=== PATIENT | female | born 2000 | race Caucasian/White ===

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

== ENCOUNTER → 2021-01-03 | Outpatient (CLI) | payer OTHER ==
[~2021-01-03] MED LIST changes: +CLAR10CA3 PO; +DEPA1TAB3; +HYDR-3363; +LAMI1TAB9; +LITH150C PO
== END ==
LOC: M WUC 12:05
PROVIDERS: ATTEND Nurse Practitioner Psychiatric/Mental Health
DX: F25.0 Schizoaffective disorder, bipolar type (principal)

== ENCOUNTER → 2021-02-12 | Outpatient (REF) | payer OTHER ==
[2021-02-12 20:35] LABS: GC DNA AMPLIFICATION NEGATIVE (NEGATIVE)
== END ==
LOC: M SFHCWAGY 17:30
PROVIDERS: ATTEND Nurse Practitioner Women's Health
DX: Z11.3 Encounter for screening for infections with a predominantly sexual mode of transmission (principal)

== ENCOUNTER → 2021-09-22 | Outpatient (REF) | payer OTHER, MEDICAID ==
[2021-09-22 13:25] LABS: APPEARANCE, URINE CLEAR (CLEAR); BACTERIA, URINE AUTO 1+ (NEGATIVE); BILIRUBIN, URINE AUTO NEGATIVE (NEGATIVE); BLOOD, URINE BLOOD 1+ (NEGATIVE); COLOR, URINE YELLOW (YELLOW); GLUCOSE, URINE (UA) AUTO NEGATIVE (NEGATIVE); KETONE, URINE AUTO NEGATIVE (NEGATIVE); LEUKOCYTE ESTERASE, URINE AUTO NEGATIVE (NEGATIVE); NITRITE, URINE AUTO NEGATIVE (NEGATIVE); PROTEIN, URINE AUTO NEGATIVE (NEGATIVE); RBC, URINE AUTO 0 /HPF (0-3); SPECIFIC GRAVITY URINE AUTO 1.008 (1.002-1.035); SQUAMOUS EPITHELIAL CELL UR AU 2 /HPF (0-6); UROBILINOGEN, URINE AUTO 0.2 mg/dL (0.0-2.0); WBC, URINE AUTO 1 /HPF (0-3)
== END ==
LOC: M LAB REF 12:47
PROVIDERS: ATTEND Physician Assistant Medical
DX: N39.0 Urinary tract infection, site not specified (principal)

== ENCOUNTER 2021-11-05 18:19 | Emergency (ER) | payer OTHER, MEDICAID ==
[~2021-11-05] VITALS: Ht 170.2 cm; Wt 56.2 kg
[2021-11-05] MEDS ORDERED: NEXP1IMP SC (18:29)
[2021-11-05] MEDS ORDERED: ABIL1INJ2 (18:54)
[2021-11-05 20:21] LABS: HEMATOCRIT 38.5 % (36.0-47.0); HEMOGLOBIN 13.3 g/dl (12.0-15.5); MEAN CORPUSCULAR HEMOGLOBIN 29.4 pg (27.0-33.0); MEAN CORPUSCULAR HGB CONC 34.5 g/dl (32.0-36.5); PLATELET COUNT, AUTOMATED 212 10^3/uL (150-450); RED BLOOD COUNT 4.53 10^6/uL (4.00-5.40)
[2021-11-05 20:49] LABS: AMPHETAMINES LEVEL URINE NEGATIVE (NEGATIVE); BARBITURATES URINE NEGATIVE (NEGATIVE); BENZODIAZEPINES URINE NEGATIVE (NEGATIVE); CANNABINOIDS URINE NEGATIVE (NEGATIVE); COCAINE METABOLITE URINE NEGATIVE (NEGATIVE); METHADONE URINE NEGATIVE (NEGATIVE); OPIATES URINE NEGATIVE (NEGATIVE); PHENCYCLIDINE URINE NEGATIVE (NEGATIVE)
[2021-11-05 20:55] LABS: HCG, SERUM QUALITATIVE NEGATIVE (NEGATIVE)
[2021-11-05 20:56] LABS: RSV AMPLIFICATION NEGATIVE (NEGATIVE)
[2021-11-05 20:58] LABS: ACETAMINOPHEN LEVEL < 2.0 UG/ML (10.0-30.0); ALBUMIN 3.9 GM/DL (3.2-5.2); ALT/SGPT 39 U/L (12-78); BILIRUBIN,DIRECT 0.2 MG/DL (0.0-0.2); BILIRUBIN,TOTAL 0.6 MG/DL (0.2-1.0); BLOOD UREA NITROGEN 9 MG/DL (7-18); CALCIUM LEVEL 9.1 MG/DL (8.5-10.1); CARBON DIOXIDE LEVEL 22 MEQ/L (21-32); CHLORIDE LEVEL 113 MEQ/L (98-107); CREATININE FOR GFR 0.68 MG/DL (0.55-1.30); ETHYL ALCOHOL (ETHANOL) < 0.003 % (0.000-0.010); GLUCOSE, FASTING 90 MG/DL (70-100); POTASSIUM SERUM 3.7 MEQ/L (3.5-5.1); SALICYLATE LEVEL < 1.7 MG/DL (5.0-30.0); SODIUM LEVEL 143 MEQ/L (136-145); TOTAL PROTEIN 6.7 GM/DL (6.4-8.2)
[2021-11-06] MEDS ORDERED: ABIL1INJ2 IM (01:38)
[2021-11-06] MEDS ORDERED: NEXP1IMP SC (01:38)
[2021-11-06] MEDS ORDERED: HOME MED LIST COMPLETE! XX SCH (01:40)
[2021-11-06 08:50] VITALS: BP 109/55
== END 2021-11-06 09:45 | disposition home or self-care (01) ==
LOC: M ED 18:19
DX: F43.0 Acute stress reaction (principal); F31.9 Bipolar disorder, unspecified; Z79.899 Other long term (current) drug therapy

== ENCOUNTER 2021-12-27 22:45 | Emergency (ER) | payer MEDICAID, OTHER ==
[~2021-12-27 22:45] MED LIST changes: +ABIL1INJ2; +ABIL1INJ2 IM; +NEXP1IMP SC
[2021-12-28] MEDS ORDERED: OMEPRAZOLE 20MG CAP PO ONE (06:25)
[2021-12-28 06:32] VITALS: BP 106/59
[2021-12-28] MEDS ORDERED: OMEP-173 PO (06:39)
== END 2021-12-28 07:01 | disposition home or self-care (01) ==
LOC: M ED 22:45
DX: R07.89 Other chest pain (principal); K21.9 Gastro-esophageal reflux disease without esophagitis; R00.1 Bradycardia, unspecified; F32.A Depression, unspecified; F20.9 Schizophrenia, unspecified; F94.1 Reactive attachment disorder of childhood; Z79.899 Other long term (current) drug therapy

== ENCOUNTER 2022-02-06 17:15 | Emergency (ER) | payer OTHER ==
[~2022-02-06] VITALS: Ht 167.6 cm; Wt 51.3 kg
[~2022-02-06 17:15] MED LIST changes: +ETON68IM SC; -NEXP1IMP SC; +OMEP-173 PO
[2022-02-06 22:31] LABS: HEMOGLOBIN 13.5 g/dl (12.0-15.5); MEAN CORPUSCULAR HEMOGLOBIN 29.2 pg (27.0-33.0); MEAN CORPUSCULAR HGB CONC 33.8 g/dl (32.0-36.5); MEAN CORPUSCULAR VOLUME 86.4 fl (80.0-96.0); PLATELET COUNT, AUTOMATED 106 10^3/uL (150-450); RED BLOOD COUNT 4.63 10^6/uL (4.00-5.40); WHITE BLOOD COUNT 11.3 10^3/uL (4.0-10.0)
[2022-02-06 22:47] LABS: HCG, SERUM QUALITATIVE NEGATIVE (NEGATIVE)
[2022-02-06 22:52] LABS: AMPHETAMINES LEVEL URINE NEGATIVE (NEGATIVE); BARBITURATES URINE NEGATIVE (NEGATIVE); BENZODIAZEPINES URINE NEGATIVE (NEGATIVE); CANNABINOIDS URINE NEGATIVE (NEGATIVE); COCAINE METABOLITE URINE NEGATIVE (NEGATIVE); METHADONE URINE NEGATIVE (NEGATIVE); OPIATES URINE NEGATIVE (NEGATIVE); PHENCYCLIDINE URINE NEGATIVE (NEGATIVE)
[2022-02-06 22:59] VITALS: BP 101/56
[2022-02-06 23:02] LABS: ACETAMINOPHEN LEVEL < 2.0 UG/ML (10.0-30.0); ALBUMIN 3.8 GM/DL (3.2-5.2); ALT/SGPT 49 U/L (12-78); BILIRUBIN,DIRECT 0.1 MG/DL (0.0-0.2); BILIRUBIN,TOTAL 0.5 MG/DL (0.2-1.0); BLOOD UREA NITROGEN 6 MG/DL (7-18); CALCIUM LEVEL 8.6 MG/DL (8.5-10.1); CARBON DIOXIDE LEVEL 23 MEQ/L (21-32); CHLORIDE LEVEL 113 MEQ/L (98-107); CREATININE FOR GFR 0.75 MG/DL (0.55-1.30); ETHYL ALCOHOL (ETHANOL) 0.004 % (0.000-0.010); GLUCOSE, FASTING 113 MG/DL (70-100); POTASSIUM SERUM 3.9 MEQ/L (3.5-5.1); SALICYLATE LEVEL < 1.7 MG/DL (5.0-30.0); SODIUM LEVEL 144 MEQ/L (136-145); THYROID STIMULATING HORMONE 0.678 uIU/ML (0.463-3.98); TOTAL PROTEIN 7.1 GM/DL (6.4-8.2)
== END 2022-02-07 01:27 | disposition home or self-care (01) ==
LOC: M ED 17:15
DX: F32.A Depression, unspecified (principal); F20.9 Schizophrenia, unspecified; F17.200 Nicotine dependence, unspecified, uncomplicated; F10.10 Alcohol abuse, uncomplicated

== ENCOUNTER → 2022-08-23 | Outpatient (REF) | payer OTHER | LOC: M LAB REF 16:31 | PROVIDERS: ATTEND Physician Assistant | DX: J02.9 Acute pharyngitis, unspecified (principal) ==

== ENCOUNTER 2022-10-12 11:41 | Emergency (ER) | payer OTHER ==
[~2022-10-12] VITALS: Ht 170.2 cm; Wt 50.8 kg
[2022-10-12 15:03] LABS: BASO # 0.1 10^3/uL (0.0-0.2); BASO % 0.3 % (0.0-1.0); EOS % 0.3 % (0.0-3.0); HEMATOCRIT 43.6 % (36.0-47.0); LYMPH # 1.7 10^3/uL (1.5-5.0); LYMPH % 10.9 % (24.0-44.0); MEAN CORPUSCULAR HEMOGLOBIN 29.2 pg (27.0-33.0); MEAN CORPUSCULAR HGB CONC 34.4 g/dl (32.0-36.5); MEAN CORPUSCULAR VOLUME 84.8 fl (80.0-96.0); MONO # 0.8 10^3/uL (0.0-0.8); MONO % 5.3 % (2.0-8.0); NEUTROPHILS % 82.9 % (36.0-66.0); PLATELET COUNT, AUTOMATED 171 10^3/uL (150-450); RED BLOOD COUNT 5.14 10^6/uL (4.00-5.40); WHITE BLOOD COUNT 15.7 10^3/uL (4.0-10.0)
[2022-10-12 15:10] LABS: APPEARANCE, URINE HAZY (CLEAR); BACTERIA, URINE AUTO NEGATIVE (NEGATIVE); BILIRUBIN, URINE AUTO NEGATIVE (NEGATIVE); BLOOD, URINE BLOOD 3+ (NEGATIVE); COLOR, URINE AMBER (YELLOW); GLUCOSE, URINE (UA) AUTO NEGATIVE (NEGATIVE); KETONE, URINE AUTO 2+ mg/dL (NEGATIVE); LEUKOCYTE ESTERASE, URINE AUTO NEGATIVE (NEGATIVE); MUCUS, URINE MODERATE (NEGATIVE); NITRITE, URINE AUTO NEGATIVE (NEGATIVE); PROTEIN, URINE AUTO 1+ mg/dL (NEGATIVE); RBC, URINE AUTO 1 /HPF (0-3); SPECIFIC GRAVITY URINE AUTO 1.029 (1.002-1.035); SQUAMOUS EPITHELIAL CELL UR AU 4 /HPF (0-6); WBC, URINE AUTO 9 /HPF (0-3)
[2022-10-12 15:24] LABS: BLOOD UREA NITROGEN 8 MG/DL (9-23); CALCIUM LEVEL 9.3 MG/DL (8.5-10.1); CARBON DIOXIDE LEVEL 20 MMOL/L (20-31); CHLORIDE LEVEL 108 MMOL/L (98-107); CREATININE FOR GFR 0.67 MG/DL (0.55-1.30); GLUCOSE, FASTING 77 MG/DL (60-100); HCG, SERUM QUANTITATIVE < 2.6 MIU/ML (<4.2); POTASSIUM SERUM 3.8 MMOL/L (3.5-5.1); SODIUM LEVEL 139 MMOL/L (136-145)
[2022-10-12 16:25] LABS: GC DNA AMPLIFICATION NEGATIVE (NEGATIVE)
[2022-10-12] MEDS ORDERED: METR-265 PO (17:21)
[2022-10-12 17:44] VITALS: BP 132/73
[2022-10-14] MEDS ORDERED: DOXY-443 PO (07:27)
== END 2022-10-12 17:51 | disposition home or self-care (01) ==
LOC: M ED 11:41
DX: A59.01 Trichomonal vulvovaginitis (principal); N93.9 Abnormal uterine and vaginal bleeding, unspecified; N76.0 Acute vaginitis; F17.200 Nicotine dependence, unspecified, uncomplicated; Z79.899 Other long term (current) drug therapy

== ENCOUNTER 2022-12-23 17:52 | Emergency (ER) | payer OTHER ==
[~2022-12-23] VITALS: Ht 162.6 cm; Wt 54.2 kg
[~2022-12-23 17:52] MED LIST changes: +DOXY-443 PO; +METR-265 PO
[2022-12-23 22:09] LABS: GC DNA AMPLIFICATION NEGATIVE (NEGATIVE)
[2022-12-23] MEDS ORDERED: DOXYCYCLINE HYCLATE 100MG TABLET PO ONE (22:25)
[2022-12-23] MEDS ORDERED: DOXY-443 PO (22:41)
[2022-12-23 22:49] VITALS: BP 132/76; TEMP 97.8; O2SAT 99
== END 2022-12-23 22:56 | disposition home or self-care (01) ==
LOC: M ED 17:52
DX: R10.2 Pelvic and perineal pain (principal); A74.9 Chlamydial infection, unspecified; Z79.899 Other long term (current) drug therapy

== ENCOUNTER 2023-01-21 22:58 | Emergency (ER) | payer OTHER ==
[~2023-01-21] VITALS: Ht 170.2 cm; Wt 53.0 kg
[2023-01-21 23:13] VITALS: BP 133/69; TEMP 99.4; O2SAT 100
[2023-01-22 00:50] LABS: BASO # 0.1 10^3/uL (0.0-0.2); BASO % 0.4 % (0.0-1.0); EOS # 0.1 10^3/uL (0.0-0.5); EOS % 0.5 % (0.0-3.0); HEMOGLOBIN 13.6 g/dl (12.0-15.5); LIPASE 23 U/L (12-53); LYMPH # 2.4 10^3/uL (1.5-5.0); LYMPH % 18.9 % (24.0-44.0); MEAN CORPUSCULAR HEMOGLOBIN 29.5 pg (27.0-33.0); MEAN CORPUSCULAR HGB CONC 33.2 g/dl (32.0-36.5); MEAN CORPUSCULAR VOLUME 88.9 fl (80.0-96.0); MONO # 1.4 10^3/uL (0.0-0.8); MONO % 10.8 % (2.0-8.0); NEUTROPHILS # 8.8 10^3/uL (1.5-8.5); NEUTROPHILS % 68.2 % (36.0-66.0); PLATELET COUNT, AUTOMATED 163 10^3/uL (150-450); RED BLOOD COUNT 4.61 10^6/uL (4.00-5.40); WHITE BLOOD COUNT 12.8 10^3/uL (4.0-10.0)
[2023-01-22 00:52] LABS: ALBUMIN 4.1 G/DL (3.2-5.2); ALKALINE PHOSPHATASE 94 U/L (46-116); ALT/SGPT 14 U/L (7.0-40); AST/SGOT 11 U/L (<34); BILIRUBIN,DIRECT 0.5 MG/DL (<0.4); BILIRUBIN,TOTAL 1.4 MG/DL (0.3-1.2); BLOOD UREA NITROGEN 8 MG/DL (9-23); CALCIUM LEVEL 9.2 MG/DL (8.5-10.1); CARBON DIOXIDE LEVEL 24 MMOL/L (20-31); CHLORIDE LEVEL 106 MMOL/L (98-107); CREATININE FOR GFR 0.68 MG/DL (0.55-1.30); GLOMERULAR FILTRATION RATE > 60.0 (>60); GLUCOSE, FASTING 103 MG/DL (60-100); POTASSIUM SERUM 3.7 MMOL/L (3.5-5.1); SODIUM LEVEL 139 MMOL/L (136-145); TOTAL PROTEIN 7.1 G/DL (5.7-8.2)
== END 2023-01-22 01:28 | disposition left against medical advice (07) ==
LOC: M ED 22:58
DX: Z53.21 Procedure and treatment not carried out due to patient leaving prior to being seen by health care provider (principal)

== ENCOUNTER → 2023-04-21 | Outpatient (CLI) | payer OTHER ==
[2023-04-21 16:08] LABS: HEMATOCRIT 38.3 % (36.0-47.0); HEMOGLOBIN 12.8 g/dl (12.0-15.5); MEAN CORPUSCULAR HEMOGLOBIN 29.1 pg (27.0-33.0); MEAN CORPUSCULAR HGB CONC 33.4 g/dl (32.0-36.5); PLATELET COUNT, AUTOMATED 162 10^3/uL (150-450); WHITE BLOOD COUNT 11.8 10^3/uL (4.0-10.0)
[2023-04-21 16:52] LABS: HIV 1&2 SCREEN NEGATIVE (NEGATIVE)
[2023-04-21 16:59] LABS: HEPATITIS C VIRUS ABY INDEX 0.04 INDEX (<0.8)
[2023-04-21 17:48] LABS: GC DNA AMPLIFICATION NEGATIVE (NEGATIVE)
== END ==
LOC: M PLALAB 14:06
PROVIDERS: ATTEND Advanced Practice Midwife
DX: Z34.01 Encounter for supervision of normal first pregnancy, first trimester (principal)

== ENCOUNTER → 2023-06-23 | Outpatient (CLI) | payer OTHER | LOC: M WHC 13:30 | PROVIDERS: ATTEND Specialist | DX: Z34.02 Encounter for supervision of normal first pregnancy, second trimester (principal) ==

== ENCOUNTER → 2023-08-13 | Outpatient (CLI) | payer OTHER ==
[2023-08-13 15:47] LABS: HEMOGLOBIN 12.5 g/dl (12.0-15.5); MEAN CORPUSCULAR HEMOGLOBIN 30.6 pg (27.0-33.0); MEAN CORPUSCULAR HGB CONC 33.8 g/dl (32.0-36.5); MEAN CORPUSCULAR VOLUME 90.7 fl (80.0-96.0); PLATELET COUNT, AUTOMATED 145 10^3/uL (150-450); RED BLOOD COUNT 4.08 10^6/uL (4.00-5.40); WHITE BLOOD COUNT 11.2 10^3/uL (4.0-10.0)
== END ==
LOC: M PLALAB 12:36
PROVIDERS: ATTEND Advanced Practice Midwife
DX: Z34.02 Encounter for supervision of normal first pregnancy, second trimester (principal)

== ENCOUNTER → 2023-08-30 | Outpatient (CLI) | payer OTHER | LOC: M WHC 13:34 | PROVIDERS: ATTEND Advanced Practice Midwife | DX: Z34.03 Encounter for supervision of normal first pregnancy, third trimester (principal); Z3A.29 29 weeks gestation of pregnancy ==

== ENCOUNTER → 2023-10-11 | Outpatient (REF) | payer OTHER | LOC: M SFHCWAGY 10:15 | PROVIDERS: ATTEND Specialist | DX: Z34.03 Encounter for supervision of normal first pregnancy, third trimester (principal); Z36.85 Encounter for antenatal screening for Streptococcus B ==

== ENCOUNTER 2023-10-24 01:02 | Inpatient (IN) | payer OTHER ==
[~2023-10-24] VITALS: Ht 165.1 cm; Wt 65.3 kg
[2023-10-24 01:24] VITALS: BP 131/72
[2023-10-24] MEDS ORDERED: METHYLERGONOVINE MALEATE 0.2MG/ML 1ML VIAL IM PRN (01:25)
[2023-10-24] MEDS ORDERED: OXYTOCIN DRIP 30 UNITS in IV 1 EA IV PRN (01:25)
[2023-10-24] MEDS ORDERED: OXYTOCIN INJ 10UNITS/ML 1ML VIAL IM PRN (01:25)
[2023-10-24] MEDS ORDERED: TRANEXAMIC ACID INJection 1,000 MG in NS 100 ML IV PRN (01:25)
[2023-10-24] MEDS ORDERED: CARBOPROST TROMETHAMINE 250 MCG/ML AMP IM PRN (01:25)
[2023-10-24 01:34] LABS: BASO # 0.1 10^3/uL (0.0-0.2); BASO % 0.4 % (0.0-1.0); EOS # 0.1 10^3/uL (0.0-0.5); EOS % 0.7 % (0.0-3.0); HEMOGLOBIN 13.4 g/dl (12.0-15.5); LYMPH # 3.3 10^3/uL (1.5-5.0); LYMPH % 20.7 % (24.0-44.0); MEAN CORPUSCULAR HEMOGLOBIN 30.3 pg (27.0-33.0); MEAN CORPUSCULAR HGB CONC 34.4 g/dl (32.0-36.5); MEAN CORPUSCULAR VOLUME 88.2 fl (80.0-96.0); MONO # 1.3 10^3/uL (0.0-0.8); MONO % 8.2 % (2.0-8.0); NEUTROPHILS # 10.9 10^3/uL (1.5-8.5); NEUTROPHILS % 69.2 % (36.0-66.0); PLATELET COUNT, AUTOMATED 132 10^3/uL (150-450); RED BLOOD COUNT 4.42 10^6/uL (4.00-5.40); WHITE BLOOD COUNT 15.7 10^3/uL (4.0-10.0)
[2023-10-24] MEDS: LIDOCAINE 1% MDV 20ML VIAL INFIL PRN (04:03)
[2023-10-24 04:32] VITALS: BP 132/69
[2023-10-24] MEDS ORDERED: RHOGAM 300MCG (1500IU) INJ IM SCH (04:35)
[2023-10-24] MEDS ORDERED: ACETAMINOPHEN 500 MG TAB PO PRN (04:35)
[2023-10-24] MEDS ORDERED: ONDANSETRON 4MG 2ML VIAL IV PRN (04:35)
[2023-10-24] MEDS ORDERED: ANUSOL HC CREAM 30GM TOP PRN (04:35)
[2023-10-24] MEDS ORDERED: DOCUSATE SODIUM 100MG CAPSULE PO PRN (04:35)
[2023-10-24 04:46] VITALS: BP 128/65
[2023-10-24] MEDS: OXYTOCIN DRIP 30 UNITS in IV 1 EA IV SCH (04:56)
[2023-10-24 05:01] VITALS: BP 121/64
[2023-10-24 06:10] VITALS: BP 119/66; O2SAT 100
[2023-10-24] MEDS: LR 1,000 ML IV SCH (06:35)
[2023-10-24] MEDS: DIBUCAINE 1% OINTMENT 30GM TOP PRN (08:07)
[2023-10-24] MEDS: PRENATAL VITAMINS CHEWABLE TABLET PO SCH (08:07)
[2023-10-24] MEDS: IBUPROFEN 800 MG TAB PO PRN (09:56)
[2023-10-24] MEDS: IBUPROFEN 600MG TAB PO PRN (17:54)
[2023-10-24 18:00] VITALS: BP 115/76; O2SAT 100
[2023-10-25 06:00] VITALS: BP 118/72; O2SAT 99
[2023-10-25] MEDS: ACETAMINOPHEN TAB 650MG DOSE (2X325MG) PO PRN (11:39)
[2023-10-25] MEDS: INFLUENZA QUADRIVALENT PF VACCINE 0.5ML SYRINGE IM.IMMUN ONE (12:29)
[2023-10-25 18:00] VITALS: BP 131/77; O2SAT 100
[2023-10-26 06:00] VITALS: BP 115/70; O2SAT 100
[2023-10-26] MEDS ORDERED: MEASLES,MUMPS,RUBELLA VACCINE INJ (MMR-II) SC.IMMUN ONE (09:00)
[2023-10-26] MEDS ORDERED: ACET-683 PO (11:02)
[2023-10-26] MEDS ORDERED: IBUP80TA PO (11:02)
[2023-10-26 18:00] VITALS: BP 130/79; O2SAT 100
== END 2023-10-26 20:05 | disposition home or self-care (01) | DRG 560 ==
LOC: EEVIPCON 01:02 → M LDI 01:02 → M OBS 06:08
PROVIDERS: ADMIT Obstetrics & Gynecology; ATTEND Obstetrics & Gynecology
PROC: 10E0XZZ Delivery of Products of Conception, External Approach (ICD-10-PCS; principal; 2023-10-24)
PROC: 0KQM0ZZ Repair Perineum Muscle, Open Approach (ICD-10-PCS; 2023-10-24)
DX: O70.1 Second degree perineal laceration during delivery (principal); Z37.0 Single live birth; Z3A.37 37 weeks gestation of pregnancy

== ENCOUNTER → 2024-05-31 | Outpatient (CLI) | payer OTHER ==
[~2024-05-31] MED LIST changes: +ACET-683 PO; +DOXY-441 PO; -DOXY-443 PO; +IBUP80TA PO
[2024-05-31 19:24] LABS: HCG, SERUM QUALITATIVE POSITIVE (NEGATIVE)
== END ==
LOC: M PLALAB 15:15
PROVIDERS: ATTEND Family Medicine Addiction Medicine
DX: Z32.01 Encounter for pregnancy test, result positive (principal)

== ENCOUNTER → 2024-06-06 | Outpatient (CLI) | payer OTHER | LOC: M PLALAB 10:53 | PROVIDERS: ATTEND Specialist | DX: N92.6 Irregular menstruation, unspecified (principal) ==

== ENCOUNTER → 2024-06-07 | Outpatient (CLI) | payer OTHER, SELFPAY | LOC: M PLALAB 12:52 | PROVIDERS: ATTEND Specialist | DX: N92.6 Irregular menstruation, unspecified (principal) ==

== ENCOUNTER → 2024-08-04 | Outpatient (REF) | payer OTHER, MEDICAID | LOC: M LAB REF 20:30 | PROVIDERS: ATTEND Physician Assistant Medical | DX: M79.10 Myalgia, unspecified site (principal) ==

== ENCOUNTER → 2024-08-14 | Outpatient (REF) | payer OTHER, MEDICAID ==
[2024-08-14 15:44] LABS: GC DNA AMPLIFICATION NEGATIVE (NEGATIVE)
== END ==
LOC: M SFHCWAGY 12:59
PROVIDERS: ATTEND Specialist
DX: Z34.81 Encounter for supervision of other normal pregnancy, first trimester (principal)

== ENCOUNTER → 2024-09-28 | Outpatient (CLI) | payer OTHER | LOC: M WHC 14:01 | PROVIDERS: ATTEND Nurse Practitioner Family | DX: Z34.82 Encounter for supervision of other normal pregnancy, second trimester (principal) ==

== ENCOUNTER → 2024-11-21 | Outpatient (CLI) | payer OTHER ==
[~2024-11-21] MED LIST changes: +LAMO-18 PO; -LAMO25TA4 PO
[2024-11-21 15:30] LABS: GLUCOSE CHALLENGE TEST 1 HOUR 162 MG/DL (LESS THAN 140)
[2024-11-21 15:50] LABS: HEMATOCRIT 33.7 % (36.0-47.0); HEMOGLOBIN 11.4 g/dl (12.0-15.5); MEAN CORPUSCULAR HEMOGLOBIN 30.5 pg (27.0-33.0); MEAN CORPUSCULAR HGB CONC 33.8 g/dl (32.0-36.5); MEAN CORPUSCULAR VOLUME 90.1 fl (80.0-96.0); PLATELET COUNT, AUTOMATED 155 10^3/uL (150-450); RED BLOOD COUNT 3.74 10^6/uL (4.00-5.40); WHITE BLOOD COUNT 12.5 10^3/uL (4.0-10.0)
[2024-11-21 15:56] LABS: HIV 1&2 SCREEN NEGATIVE (NEGATIVE)
[2024-11-21 16:04] LABS: HEPATITIS C VIRUS ABY INDEX 0.09 INDEX (<0.8)
[2024-11-21 16:45] LABS: Trichomonas vaginalis (AMP) NOT DETECTED (NEGATIVE)
[2024-11-21 17:09] LABS: GC DNA AMPLIFICATION NEGATIVE (NEGATIVE)
== END ==
LOC: M PLALAB 12:21
PROVIDERS: ATTEND Obstetrics & Gynecology
DX: Z34.92 Encounter for supervision of normal pregnancy, unspecified, second trimester (principal); Z3A.00 Weeks of gestation of pregnancy not specified

== ENCOUNTER → 2024-11-29 | Outpatient (CLI) | payer OTHER | LOC: M LAB 07:32 | PROVIDERS: ATTEND Obstetrics & Gynecology | DX: O99.810 Abnormal glucose complicating pregnancy (principal) ==

== ENCOUNTER → 2025-01-08 | Outpatient (REF) | payer OTHER | LOC: M SFHCWAGY 15:04 | PROVIDERS: ATTEND Obstetrics & Gynecology | DX: Z36.85 Encounter for antenatal screening for Streptococcus B (principal); Z3A.35 35 weeks gestation of pregnancy ==

== ENCOUNTER 2025-01-23 15:11 | Inpatient (IN) | payer OTHER ==
[~2025-01-23] VITALS: Ht 165.1 cm; Wt 65.9 kg
[2025-01-23] MEDS ORDERED: LIDOCAINE 1% MDV 20 ML VIAL As Ordered ONE (15:33)
[2025-01-23 15:53] VITALS: BP 116/69
[2025-01-23 16:14] VITALS: BP 131/79
[2025-01-23] MEDS ORDERED: DIBUCAINE 1% OINTMENT 30 GM TOP PRN (16:20)
[2025-01-23] MEDS ORDERED: CALCIUM CARBONATE 500 MG CHEW U/D PO PRN (16:20)
[2025-01-23] MEDS ORDERED: IBUPROFEN 600 MG TAB PO PRN (16:20)
[2025-01-23] MEDS ORDERED: ACETAMINOPHEN 325 MG TAB PO PRN (16:20)
[2025-01-23] MEDS ORDERED: DOCUSATE SODIUM 100 MG CAPSULE PO PRN (16:20)
[2025-01-23] MEDS ORDERED: ANUSOL HC CREAM 30 GM TOP PRN (16:20)
[2025-01-23] MEDS ORDERED: METHYLERGONOVINE MALEATE 0.2 MG TAB PO PRN (16:20)
[2025-01-23] MEDS ORDERED: MOM 30 ML SUSPENSION UDC PO PRN (16:20)
[2025-01-23 16:41] LABS: PLATELET COUNT, AUTOMATED 103 10^3/uL (150-450)
[2025-01-23] MEDS: OXYTOCIN INJ 10UNITS/ML 1ML VIAL IM ONE (16:52)
[2025-01-23 16:54] VITALS: BP 127/66
[2025-01-23 17:23] LABS: HIV 1&2 SCREEN NEGATIVE (NEGATIVE)
[2025-01-23 17:31] LABS: HEPATITIS C VIRUS ABY INDEX < 0.02 INDEX (<0.8)
[2025-01-23] MEDS: IBUPROFEN 800 MG TAB PO PRN (18:07)
[2025-01-23 18:09] VITALS: BP 127/70
[2025-01-23 18:40] VITALS: BP 123/73; O2SAT 87
[2025-01-23] MEDS: ACETAMINOPHEN 500 MG TAB PO PRN (23:21)
[2025-01-24 05:39] VITALS: BP 118/73; O2SAT 96
[2025-01-24] MEDS: RHOGAM 300MCG (1500IU) INJ IM SCH (07:39)
[2025-01-24] MEDS: PRENATAL VITAMINS CHEWABLE TABLET PO SCH (08:08)
[2025-01-24] MEDS: MEASLES,MUMPS,RUBELLA VACCINE INJ (MMR-II) SC.IMMUN ONE (13:00)
== END 2025-01-24 14:10 | disposition home or self-care (01) | DRG 560 ==
LOC: M LDO 15:11 → M LDI 15:25 → M OBS 18:38
PROVIDERS: ADMIT Obstetrics & Gynecology; ATTEND Obstetrics & Gynecology
PROC: 10E0XZZ Delivery of Products of Conception, External Approach (ICD-10-PCS; principal; 2025-01-23)
DX: O70.0 First degree perineal laceration during delivery (principal); Z37.0 Single live birth; Z3A.37 37 weeks gestation of pregnancy

== ENCOUNTER 2025-05-14 09:59 | Day surgery (SDC) | payer OTHER ==
[~2025-05-14] VITALS: Ht 167.6 cm; Wt 49.9 kg
[~2025-05-14 09:59] MED LIST changes: +ACET-907 PO; +AMOX875T2 PO; +AZIT-12 PO; +IBUP-354 PO; +LIDOCAINE 2% 100 MG/5 ML SDV (FOR ANES.) As Ordered ONE; +ONDANSETRON 4MG/2ML VIAL As Ordered ONE; +PRENTAB53 PO; +ROCURONIUM BROMIDE 50MG/5ML VIAL As Ordered ONE; +SERT50TA29 PO; +SUGAMMADEX SODIUM 500 MG/5 ML VIAL As Ordered ONE; +dexAMETHasone 4 MG/ML 1 ML VIAL As Ordered ONE
[2025-05-14] MEDS ORDERED: MIDAZOLAM INJ 2 MG/2 ML VIAL As Ordered ONE (10:48)
[2025-05-14 11:11] LABS: HCG, SERUM QUALITATIVE NEGATIVE (NEGATIVE)
[2025-05-14] MEDS: OXYMETAZOLINE 0.05% NASAL SPRAY As Ordered ONE (11:56)
[2025-05-14] MEDS: dexAMETHasone 4 MG/ML 1 ML VIAL IV ONE (11:57)
[2025-05-14] MEDS: AMPICILLIN SOD/SULBACTAM SOD 3 GM in DEXTROSE 5% (D5W) MINI-BAG PLU 100 ML IV ONE (12:10)
[2025-05-14] MEDS: CHLORHEXIDINE GLUCONATE 0.12% 15 ML UDC As Ordered ONE (12:13)
[2025-05-14] MEDS ORDERED: dexmedeTOMIDine (4 MCG/ML) 200 MCG/50 ML BTL As Ordered ONE (12:18)
[2025-05-14] MEDS ORDERED: ACETAMINOPHEN 1000MG/100ML IV BAG As Ordered ONE (12:21)
[2025-05-14] MEDS ORDERED: LR 1,000 ML IV SCH (12:40)
[2025-05-14] MEDS: HYDROMORPHONE HCL 0.5 MG/0.5 ML SYRINGE IV PRN (13:03)
[2025-05-14] MEDS: ONDANSETRON 4MG/2ML VIAL IV PRN (13:03)
[2025-05-14 13:50] VITALS: BP 124/75; TEMP 97.9; O2SAT 97
== END 2025-05-14 14:25 | disposition home or self-care (01) ==
LOC: M SDC 09:59
PROVIDERS: ATTEND Dentist
DX: K02.9 Dental caries, unspecified (principal); D64.9 Anemia, unspecified; G43.909 Migraine, unspecified, not intractable, without status migrainosus; F41.9 Anxiety disorder, unspecified; F32.A Depression, unspecified; F43.10 Post-traumatic stress disorder, unspecified; Z79.899 Other long term (current) drug therapy; J30.2 Other seasonal allergic rhinitis
CPT/HCPCS: 36415; 81025; 84703; 88300; D7210; D9223; J0131; J0295; J0666; J1100; J1171; J2250; J2405; J3010